=== PATIENT | male | born 1985 | race Caucasian/White ===

== ENCOUNTER 2018-06-27 09:27 | Emergency (ER) | payer MEDICAID ==
[~2018-06-27] VITALS: Ht 182.9 cm; Wt 158.8 kg
[~2018-06-27 09:27] MED LIST: BACTRIM DS TAB1 EACH; NYSTATIN 1100000 U/M PO
[2018-06-27] MEDS ORDERED: LATUDA60 MG PO (09:45)
[2018-06-27] MEDS ORDERED: EFFEXOR XR75 MG PO (09:45)
[2018-06-27] MEDS ORDERED: METFORMIN HCL500 MG PO (09:46)
[2018-06-27] MEDS ORDERED: FLONASE 0.05%50 MCG NASAL (09:47)
[2018-06-27] MEDS ORDERED: VISTARIL 25 MG25 M1 PO (09:47)
[2018-06-27] MEDS ORDERED: LATANOPROST 0.2.5 ML OPHTHALMIC (09:47)
[2018-06-27 10:59] VITALS: BP 116/77
== END 2018-06-27 11:00 | disposition home or self-care (01) ==
LOC: M.ERS 09:27
DX: S93.491A Sprain of other ligament of right ankle, initial encounter (principal); E11.9 Type 2 diabetes mellitus without complications; G47.30 Sleep apnea, unspecified; F32.9 Major depressive disorder, single episode, unspecified; F41.9 Anxiety disorder, unspecified; F20.9 Schizophrenia, unspecified; Z88.1 Allergy status to other antibiotic agents; Z88.8 Allergy status to other drugs, medicaments and biological substances; Z88.5 Allergy status to narcotic agent; X50.1XXA Overexertion from prolonged static or awkward postures, initial encounter; Y92.89 Other specified places as the place of occurrence of the external cause; Y93.01 Activity, walking, marching and hiking; Y99.8 Other external cause status